=== PATIENT | female | born 1975 | race Caucasian/White ===

== ENCOUNTER 2017-05-25 14:44 | Emergency (ER) | payer OTHER ==
[2017-05-25] MEDS: ONDANSETRON (ODT) 4 MG TAB ODT (19:16)
[2017-05-25] MEDS: morphine 4 MG/ML VIAL IM (19:16)
== END 2017-05-25 19:57 | disposition home or self-care (01) ==
LOC: FTE 14:44
DX: M54.41 Lumbago with sciatica, right side (principal); E11.9 Type 2 diabetes mellitus without complications; I10 Essential (primary) hypertension; Z79.82 Long term (current) use of aspirin; Z79.84 Long term (current) use of oral hypoglycemic drugs
CPT/HCPCS: 96372; 99284-25